=== PATIENT | female | born 1955 | race African-American/Black ===

== ENCOUNTER 2021-04-12 13:50 | Inpatient (IN) | payer OTHER ==
[~2021-04-12] VITALS: Ht 152.4 cm; Wt 54.7 kg
--- NOTE | ~2021-04-12 | EMS ---
[address] [address] EMS Patient Care Report Name: THO BRITTON Room #: 210-P [facility] IN M.R.#: [id number] Admission: 04/12/21 Attend Phys: Joshua Longo MD Discharge: 04/15/21 Date of : 59 Report #: [id number] THIS REPORT FOR: //name// Report Transmitted: 04/17/2021 09:54 EMS Care Summary [place], [place]/[facility] Incident [id number] @ 04/12/2021 13:16 Incident Location [address] [place], [place] [address] [address] Patient UNKNOWN UNKNOWN Female, Patient Address [address] [place] [address] [place] [address] Patient History Seizures,Stroke/CVA,Lupus, Patient Allergies No known allergies, Patient Medications Unknown, Chief Complaint RESP DISTRESS Disposition Transported [place] Dispatch Reason Breathing Problem Transported To [facility] Narrative PT FOUND SITTING ON COUCH IN LIVING ROOM OF HER HOME. PT STATES SHE HAD SUDDEN ONSET RESP DISTRESS. ON EMS ARRIVAL PT IS SPEAKING 2-3 WORD SENTENCES, AND IS PALE, COOL AND DIAPHORETIC. PT PLACED ON NRB AND MOVED TO THE STRETCHER. PT [facility] [address] [place] [address] EMS Patient Care Report Name: THO BRITTON Room #: 210-P [facility] IN M.R.#: [id number] Admission: 04/12/21 Attend Phys: Joshua Longo MD Discharge: 04/15/21 Date of : 59 Report #: [id number] MOVED TO AMBULANCE AND PLACED ON CPAP NOTED. PT STATES THAT WHILE ON CPAP HER RESP DISTRESS DECREASES A LITTLE BIT. PT REMAINS IN OBVIOUS RESP DISTRESS THROUGHOUT TRANSPORT. PT UNABLE TO COHERENTLY ANSWER ID AND HX QUESTIONS IN AMBULANCE. MEDIC HAD THOUGHT PTS ID AND INSURANCE CARDS WERE PLACED ON STRETCHER BY FAMILY BUT THEY ARE UNABLE TO BE LOCATED DURING TRANSPORT. FF FROM T08 RIDES W/ EMS TO HOSP. NO ADDITIONAL CHANGES NOTED ENROUTE. Initial Vitals @13:39P: 102,SpO2: 73, @13:26P: 89,SpO2: 73, @13:41P: 98,R: 24,BP: 243/119,Pain: 6/10,GCS: 15,SpO2: 74,Revised Trauma: 12, @13:29P: 94,R: 24,BP: 239/125,Pain: 6/10,GCS: 15,SpO2: 80,Revised Trauma: 12, Assessments @13:22MENTAL:No Abnormalities,SKIN:Diaphoresis,HEENT:Head/Face: No Abnormalities,LUNG SOUNDS:General: Nausea,ABDOMEN:General: Nausea,PELVIS//GI:No Abnormalities,EXTREMITIES:PULSE:NEURO:No Abnormalities,@13:40MENTAL:No Abnormalities,SKIN:Diaphoresis,HEENT:Head/Face: No Abnormalities,LUNG SOUNDS:ABDOMEN:PELVIS//GI:EXTREMITIES:PULSE:NEURO: Impression Pulmonary Edema, Acute Procedures @13:3912-Lead ECGResponse: UnchangedSucceeded@13:22ALS AssessmentResponse: UnchangedSucceeded@13:24Oxygen FlowRate: 15 Device: Non Re-breather Mask (NRB) Response: ImprovedSucceeded@13:28Saline Lock 0cc (20 ga) Site: Antecubital-LeftResponse: UnchangedFailed@13:27CPAP FlowRate: 10 Response: ImprovedSucceeded@13:263-Lead ECGResponse: UnchangedSucceeded Timeline 13:15,Call Received 13:15,Dispatch Notified 13:16,Dispatched 13:17,En Route 13:21,On Scene 13:22,At Patient 13:22,ALS Assessment,Response: UnchangedSucceeded, 13:24,Oxygen FlowRate: 15 Device: Non Re-breather Mask (NRB) Response: ImprovedSucceeded, 13:26,3-Lead ECG,Response: UnchangedSucceeded, 13:26,BP: / M,PULSE: 89,RR: R,SPO2: 73 Ox,ETCO2: ,BG: ,PAIN: ,GCS: , 13:27,CPAP FlowRate: 10 Response: ImprovedSucceeded, 13:28,Saline Lock 0cc 20 ga Site: Antecubital-Left,Response: UnchangedFailed, 13:29,BP: 239/125 M,PULSE: 94,RR: 24 R,SPO2: 80 Ox,ETCO2: ,BG: ,PAIN: 6,GCS: 15, [address] [address] EMS Patient Care Report Name: THO BRITTON Room #: 210-P [facility] IN M.R.#: [id number] Admission: 04/12/21 Attend Phys: Joshua Longo MD Discharge: 04/15/21 Date of : 59 Report #: [id number] 13:34,Depart Scene 13:39,12-Lead ECG,Response: UnchangedSucceeded, 13:39,BP: / M,PULSE: 102,RR: R,SPO2: 73 Ox,ETCO2: ,BG: ,PAIN: ,GCS: , 13:41,BP: 243/119 M,PULSE: 98,RR: 24 R,SPO2: 74 Ox,ETCO2: ,BG: ,PAIN: 6,GCS: 15, 13:44,At Destination 13:58,Call Closed Disclaimer v1.1 Copyright 2020 [employer] This EMS Care Summary contains data elements from the applicable legal record (which may be displayed differently). It is designed to provide pertinent information for the following purposes: continuity of care, clinical quality, and state data reporting. The complete legal record is available to ED staff and administrators of the receiving hospital in [employer]. All data is provided "as is."
[2021-04-12 13:52] VITALS: BP 228/116
[2021-04-12 14:08] LABS: ABSOLUTE NEUTROPHILS 2.5 thou/uL (1.4-8.2); BASOPHILS 0.3 % (0.0-2.0); EOSINOPHILS 0.2 % (0.0-3.0); HEMATOCRIT 42.3 % (37.0-47.0); HEMOGLOBIN 13.8 gm/dL (12.0-15.0); LYMPHOCYTES 43.5 % (24.0-44.0); MCH 33.4 pg (26.0-34.0); MCHC 32.6 g/dL (28.0-37.0); MCV 102.4 fL (80.0-100.0); MONOCYTES 4.3 % (1.0-8.0); PLATELET COUNT 176 thou/uL (150-400); POLYS 51.7 % (36.0-66.0); RBC 4.13 mil/uL (4.20-5.00); RDW 15.4 % (10.5-14.5); WBC 4.9 thou/uL (4.0-11.0)
[2021-04-12 14:16] LABS: CALCIUM 9.2 mg/dL (8.5-10.1); CREATININE 1.2 mg/dL (0.6-1.0); POTASSIUM 3.9 mmol/L (3.5-5.1)
[2021-04-12 14:26] LABS: ALBUMIN 3.6 g/dL (3.4-5.0); TOTAL BILIRUBIN 0.4 mg/dL (0.2-1.0); TOTAL PROTEIN 9.5 g/dL (6.4-8.2)
[2021-04-12 15:32] LABS: BE(vivo) -4.7 mmol/L (-2 to +3); HCO3 21.1 mmol/L (22.0-26.0); PCO2 41.7 mmHg (35.0-45.0); PO2 80.6 mmHg (80.0-100.0); pH 7.322 (7.360-7.450); sO2 95.1 % (92.0-98.0)
--- NOTE | 2021-04-12 18:00 | NUR ---
PT REFUSED BLOOD DRAW FOR REPEAT LACTIC FROM NURSE, SPOKE WITH BASIL IN LAB IN REGARDS TO THIS, ALL LABS TECHS OFF THE FLOOR PER BASIL
--- NOTE | 2021-04-12 18:44 | NUR ---
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
--- NOTE | 2021-04-12 19:44 | NUR ---
COVID PCR IS NEGATIVE. RT HERE TO ASSIST WITH TRANSPORT TO CCU ROOM #210. HAS BEEN UP TO [facility]. LABS DRAWN BY PHLEBOTOMY.
[2021-04-12 21:38] VITALS: BP 185/91
[2021-04-13 05:20] VITALS: BP 156/71
[2021-04-13 05:52] LABS: ANION GAP 16 mmol/L (7-16); BUN 25 mg/dL (7-18); CALCIUM 9.1 mg/dL (8.5-10.1); CHLORIDE 100 mmol/L (98-107); CO2 22 mmol/L (21-32); CREATININE 1.3 mg/dL (0.6-1.0); GLUCOSE 117 mg/dL (74-106); POTASSIUM 3.1 mmol/L (3.5-5.1); SODIUM 138 mmol/L (136-145)
[2021-04-13 06:01] LABS: HEMATOCRIT 38.1 % (37.0-47.0); HEMOGLOBIN 12.7 gm/dL (12.0-15.0); MCH 33.5 pg (26.0-34.0); MCHC 33.5 g/dL (28.0-37.0); MCV 100.1 fL (80.0-100.0); RBC 3.8 mil/uL (4.20-5.00); RDW 15.1 % (10.5-14.5); WBC 9.4 thou/uL (4.0-11.0)
[2021-04-13 07:20] VITALS: BP 160/86
[2021-04-13 08:48] LABS: CHOLESTEROL 149 mg/dL (<200); HDL CHOLESTEROL 100 mg/dL (>40); LDL CHOLESTEROL 38 mg/dL (<100); TC:HDL 1.5 Ratio (Not establshd); TRIGLYCERIDE 55 mg/dL (<150); VLDL 11 mg/dL (<40)
[2021-04-13 11:00] VITALS: BP 165/82
[2021-04-13 15:25] VITALS: BP 177/104
--- NOTE | 2021-04-13 18:50 | NUR ---
PATIENT HAS RESTED IN ROOM THROUGH THE DAY. AOX4. SHE IS QUITE PLEASANT AND NO NEW COMPLAINTS. WILL CONT WIT PLAN OF CARE.
[2021-04-13 19:21] VITALS: BP 162/67
[2021-04-14] VITALS (7 sets, daily range): BP systolic 146–179; BP diastolic 60–91
--- NOTE | 2021-04-14 05:05 | NUR ---
SLEPT MOST OF SHIFT. WHEN SLEEPING IV'S CAME OUT. WORKING ON GOALS AND PLAN OF CARE FOR NOC. UP TO COMODE NEEDED WITH STEADY GAIT.DENIES COMPLAINTS OF PAIN OR SHORTNESS OF AIR. CONTINUE TO ASSES.
[2021-04-14 05:30] LABS: HEMATOCRIT 36.8 % (37.0-47.0); HEMOGLOBIN 12.6 gm/dL (12.0-15.0); MCHC 34.3 g/dL (28.0-37.0); MCV 99.2 fL (80.0-100.0); RBC 3.71 mil/uL (4.20-5.00); RDW 14.9 % (10.5-14.5)
[2021-04-14 05:49] LABS: CALCIUM 9.2 mg/dL (8.5-10.1); CREATININE 1.4 mg/dL (0.6-1.0); POTASSIUM 3.7 mmol/L (3.5-5.1)
--- NOTE | 2021-04-14 16:11 | 2DMMODE ---
[facility] [address] [place] [address] 2 D/M-MODE ECHOCARDIOGRAM Name: THO BRITTON Room #: 210-P ADM IN M.R.#: [id number] Admission: 04/12/21 Attend Phys: Joshua Longo MD Discharge: Date of : 59 Report #: [id number] THIS REPORT FOR: cc: REMA - No family physician/PCP REMA - No family physician/PCP Dar Fox MD ~ APPROVED REPORT Study performed: 04/13/2021 09:25:18 EXAM: Comprehensive 2D, Doppler, and color-flow Echocardiogram Patient Location: Bedside Room #: 210 Status: on-call BSA: 1.63 HR: 74 bpm BP: 156/71 mmHg Rhythm: NSR Other Information Study Quality: Adequate Risk Factors: Cardiac Risk Factors: HTN Indications Congestive Heart Failure Dyspnea 2D Dimensions IVSd: 13.61 (7-11mm) LVOT Diam: 19.00 (18-24mm) LVDd: 49.65 mm PWd: 14.08 (7-11mm) Ascending Ao: 29.34 (22-36mm) LVDs: 36.43 (25-40mm) Aortic Root: 22.51 mm LV Single Plane 4CH: 50.30 % LV Single Plane 2CH: 46.95 % Biplane EF: 48.4 % Volumes Left Atrial Volume (Systole) Single Plane 4CH: 57.12 mL Single Plane 2CH: 69.58 mL LA ESV Index: 45.00 mL/m2 [facility] [address] [place] [address] 2 D/M-MODE ECHOCARDIOGRAM Name: THO BRITTON Room #: 210-[facility] IN .R.#: [id number] Admission: 04/12/21 Attend Phys: Joshua Longo MD Discharge: Date of : 59 Report #: [id number] Aortic Valve AoV Peak Naveed.: 1.76 m/s AO Peak Gr.: 12.44 mmHg LVOT Max P.42 mmHg LVOT Max V: 1.16 m/s JADON Vmax: 1.89 cm2 AI Vmax: 5.23 m/s AI Centre: 3.72 m/s2 AI PHT: 410.60 ms Mitral Valve MV Peak Gr.: 10.75 mmHg MV Mean Gr.: 6.66 mmHg E/A Ratio: 0.9 MV Decel. Time: 216.60 ms MV E Max Naveed.: 1.79 m/s MV A Naveed.: 2.02 m/s MV Max Naveed.: 1.64 m/s MV Mean Naveed.: 1.25 m/s MV VTI: 426.65 mm MV PHT: 62.81 ms MVA (PHT): 2.70 cm2 IVRT: 65.74 ms TDI E/Lateral E': 44.75 E/Medial E': 44.75 Medial E' Naveed.: 0.04 m/s Lateral E' Naveed.: 0.04 m/s Pulmonary Valve PV Peak Naveed.: 0.98 m/s PV Peak Gr.: 3.86 mmHg Pulmonary Vein P Vein S: 0.44 m/s P Vein A: 0.23 m/s P Vein D: 0.31 m/s P Vein A Dur.: 100.3 msec P Vein S/D Ratio: 1.42 Tricuspid Valve RAP Estimate: 7.00 mmHg Left Ventricle The left ventricle is normal size. There is normal LV segmental wall motion. Mild concentric left ventricular hypertrophy. Left ventricular systolic function is mildly decreased. LVEF is 45-50%. Mild diastolic dysfunction is present (impaired relaxation pattern). Right Ventricle [address] [address] 2 D/M-MODE ECHOCARDIOGRAM Name: THO BRITTON Room #: 210-P [facility] IN ..#: [id number] Admission: 04/12/21 Attend Phys: Joshua Longo MD Discharge: Date of : 59 Report #: [id number] The right ventricle is normal size. The right ventricular systolic function is normal. Atria Left atrium is moderately dilated. The right atrium size is normal. Aortic Valve The Aortic valve is mildly sclerotic. Moderate aortic regurgitation. There is no aortic valvular stenosis. Mitral Valve Mitral valve leaflets are thickened. Moderate mitral regurgitation. The peak mitral valve pressure gradient is 11 mmHg and the mean gradient is 6 mmHg. Mitral valve area by PHT is 2.7 cm2. Mild mitral stenosis. Tricuspid Valve The tricuspid valve is normal in structure. There is no tricuspid valve regurgitation noted. Pulmonic Valve The pulmonary valve is normal in structure. Mild pulmonic regurgitation. Great Vessels The aortic root is normal in size. The ascending aorta is normal in size. IVC is normal in size and collapses >50% with inspiration. Pericardium There is no pericardial effusion. <Conclusion> The left ventricle is normal size. Mild concentric left ventricular hypertrophy. There is normal LV segmental wall motion. LVEF is 45-50%. Left atrium is moderately dilated. The Aortic valve is mildly sclerotic. Moderate aortic regurgitation. Mitral valve leaflets are thickened. Moderate mitral regurgitation. The peak mitral valve pressure gradient is 11 mmHg and the mean gradient is 6 mmHg. Mitral valve area by PHT is 2.7 cm2. [place] [address] 2 D/M-MODE ECHOCARDIOGRAM Name: THO BRITTON Room #: 210-P ADM IN M.R.#: [id number] Admission: 04/12/21 Attend Phys: Joshua Longo MD Discharge: Date of : 59 Report #: [id number] The tricuspid valve is normal in structure. The pulmonary valve is normal in structure. Mild pulmonic regurgitation. The aortic root is normal in size. There is no pericardial effusion. <ELECTRONICALLY SIGNED> By: Dar Fox MD 04/14/211609 09 09 Dar Fox MD /INF
--- NOTE | 2021-04-14 20:15 | NUR ---
Assumed care of pt this AM. Pt is A&O x4. Received pt on 2L NC, titrated pt to RA w/ good sats. Pt reports no SOA, denies any chest pain. Given PRN hyralazine for SBP >170 this after with good response. Pt up to [facility], 2 BMs today. Pt received phone call today stating that family member .
[2021-04-15 01:06] LABS: GLYCOHEMOGLOBIN (HGB A1C) 5.3 % (4.8-5.6)
[2021-04-15 04:05] VITALS: BP 135/70
[2021-04-15] MEDS ORDERED: LEVOFLOXACIN500 MG PO (07:35)
[2021-04-15] MEDS ORDERED: FUROSEMIDE 20 M20 MG PO (07:35)
--- NOTE | 2021-04-15 07:39 | NUR ---
SLEPT MOST OF SHIFT. UP WITH STANDBY ASSIST NEEDED. WORKING ON GOALS AND PLAN OF CARE FOR NOC. CONTINUE TO ASSES.
[2021-04-15 08:00] VITALS: BP 135/73
[2021-04-15 09:57] VITALS: BP 135/73
[2021-04-15 11:30] VITALS: BP 161/91
[2021-04-15 11:33] LABS: CALCIUM 9.6 mg/dL (8.5-10.1); CREATININE 1.5 mg/dL (0.6-1.0); POTASSIUM 3.4 mmol/L (3.5-5.1)
--- NOTE | 2021-04-15 12:36 | NUR ---
PATIENT DISCHARGED AT THIS TIME TO HOME. USE CAR WITH SISTER. SHE DID NOT COMPLAIN OF PAIN OR DISTRESS. STATES SHE FEEL BETTER AND EVEN BETTER GOING HOME.
--- NOTE | 2021-04-16 07:33 | EKG ---
[address] [address] ELECTROCARDIOGRAM REPORT Name: THO BRITTON Room #: 210-P [facility] IN M.R.#: [id number] Admission: 04/12/21 Attend Phys: Joshua Longo MD Discharge: 04/15/21 Date of : 59 Report #: [id number] [facility] ED Test Date: 2021-04-12 Test Time: 13:49:04 Pat Name: THO BRITTON Department: Room: 210 Gender: F Expediter Clerk: marni : 1955 Requested By: Guille Gavin Order Number: [id number] : Forrest Jade Measurements Intervals [place] Rate: 97 P: 94 NE: 179 QRS: 87 QRSD: 89 T: 53 QT: 373 QTc: 474 Interpretive Statements Sinus rhythm Probable left atrial enlargement Left ventricular hypertrophy ST elevation, consider anterolateral injury No previous ECG available for comparison Electronically Signed On 04-16-2021 7:32:46 CDT by Forrest Jade [email or web address] <ELECTRONICALLY SIGNED> By: Forrest Jade MD, [facility] 04/16/21 0732 1349 134 Forrest Jade MD, FACC /EPI
== END 2021-04-15 12:41 | disposition home or self-care (01) | DRG 291 ==
LOC: ER 13:50 → 2N 21:34 → EDBD 21:34 → 2N 04-15 12:41
PROVIDERS: Emergency Medicine; Internal Medicine Pulmonary Disease; Nurse Practitioner; ADMIT Hospitalist; ATTEND Hospitalist
DX: I11.0 Hypertensive heart disease with heart failure (principal); J18.9 Pneumonia, unspecified organism; J96.01 Acute respiratory failure with hypoxia; J96.02 Acute respiratory failure with hypercapnia; N17.9 Acute kidney failure, unspecified; R65.10 Systemic inflammatory response syndrome (SIRS) of non-infectious origin without acute organ dysfunction; I50.33 Acute on chronic diastolic (congestive) heart failure; I16.0 Hypertensive urgency; Z20.822 Contact with and (suspected) exposure to COVID-19; E78.5 Hyperlipidemia, unspecified; R73.9 Hyperglycemia, unspecified; M32.9 Systemic lupus erythematosus, unspecified; E87.70 Fluid overload, unspecified; Z88.0 Allergy status to penicillin; Z86.73 Personal history of transient ischemic attack (TIA), and cerebral infarction without residual deficits; Z90.710 Acquired absence of both cervix and uterus; Z87.891 Personal history of nicotine dependence; Z90.49 Acquired absence of other specified parts of digestive tract
CPT/HCPCS: 10081